=== PATIENT | female | born 1945 | race Caucasian/White ===

== ENCOUNTER 2016-09-21 13:23 | Emergency (ER) | payer BC, MEDICARE ==
[~2016-09-21 13:23] MED LIST: ALPR0.254 PO; ASPI-496 PO; CARB200T4 PO; CETI-158 PO; CETI10CA PO; CYCL-259 PO; FISH1CAP PO; FLUT16SP NS; GUAR205P PO; LEVO750T26 PO; LISI-167 PO; LOVA20TA2 PO; MORP10CA7 PO; MORP15TA39 PO; MORP30TA14 PO; MULT-208 PO; NYST15CR33 TP; POLY17PO5 PO; PROP160C PO; SERT100T5 PO; TOPI100C PO; TRAZ100T15 PO; TRAZ50TA18 PO; VITA150T PO; [UNRECOGNIZED DRUG - OTHER] PO
[2016-09-21 14:43] LABS: BLOOD UREA NITROGEN 11 mg/dL (7-18)
[2016-09-21] MEDS ORDERED: OXYcodone/APAP 5/325MG TABLET ONE (15:24)
[2016-09-21] MEDS ORDERED: OXYcodone/APAP 5/325MG TABLET PO ONE (15:30)
[2016-09-21 15:50] VITALS: BP 108/47
[2016-09-21] MEDS ORDERED: PLEASE ENTER HEIGHT MC SCH (16:00)
== END 2016-09-21 16:49 | disposition home or self-care (01) ==
LOC: ED 15:13
DX: S00.83XA Contusion of other part of head, initial encounter (principal); S00.33XA Contusion of nose, initial encounter; J01.00 Acute maxillary sinusitis, unspecified; J01.20 Acute ethmoidal sinusitis, unspecified; J01.10 Acute frontal sinusitis, unspecified; J01.30 Acute sphenoidal sinusitis, unspecified; I10 Essential (primary) hypertension; Z86.73 Personal history of transient ischemic attack (TIA), and cerebral infarction without residual deficits; Z90.49 Acquired absence of other specified parts of digestive tract; W18.30XA Fall on same level, unspecified, initial encounter; Y93.89 Activity, other specified; Y92.89 Other specified places as the place of occurrence of the external cause; Y99.9 Unspecified external cause status
CPT/HCPCS: 36415; 70450; 70486; 72125; 80048; 81003; 82040; 85025; 99285

== ENCOUNTER → 2017-07-31 | Outpatient (CLI) | payer BC ==
[~2017-07-31] MED LIST changes: +MORP-52 PO; -MORP15TA39 PO
== END | disposition home or self-care (01) ==
LOC: CFH 07:58
PROVIDERS: ATTEND Nurse Practitioner
DX: I08.0 Rheumatic disorders of both mitral and aortic valves (principal); J44.9 Chronic obstructive pulmonary disease, unspecified; E78.5 Hyperlipidemia, unspecified; I10 Essential (primary) hypertension; Z86.73 Personal history of transient ischemic attack (TIA), and cerebral infarction without residual deficits
CPT/HCPCS: 93306

== ENCOUNTER 2017-09-08 19:38 | Emergency (ER) | payer BC ==
[~2017-09-08] VITALS: Ht 157.5 cm; Wt 112.0 kg
[2017-09-08] MEDS ORDERED: HYDROcodone/APAP 5/325 TABLET ONE (20:14)
[2017-09-08] MEDS ORDERED: [UNRECOGNIZED DRUG - OTHER] (20:24)
[2017-09-08] MEDS ORDERED: CHOL10003 PO (20:24)
[2017-09-08] MEDS ORDERED: OMEG1CAP23 PO (20:24)
[2017-09-08] MEDS ORDERED: TRAZ100T15 PO (20:24)
[2017-09-08] MEDS ORDERED: HYDROcodone/APAP 5/325 TABLET PO ONE (20:30)
[2017-09-08 21:17] VITALS: BP 128/56
== END 2017-09-08 21:19 | disposition home or self-care (01) ==
LOC: ED 20:45
DX: S20.211A Contusion of right front wall of thorax, initial encounter (principal); W01.0XXA Fall on same level from slipping, tripping and stumbling without subsequent striking against object, initial encounter; Y93.89 Activity, other specified; Y92.009 Unspecified place in unspecified non-institutional (private) residence as the place of occurrence of the external cause; Y99.9 Unspecified external cause status; I10 Essential (primary) hypertension; Z86.73 Personal history of transient ischemic attack (TIA), and cerebral infarction without residual deficits; Z87.891 Personal history of nicotine dependence
CPT/HCPCS: 93005; 99284

== ENCOUNTER → 2017-12-20 | Outpatient (CLI) | payer BC ==
[~2017-12-20] MED LIST changes: +CHOL10003 PO; +OMEG1CAP23 PO; -TOPI100C PO; +TOPI100C6 PO; +[UNRECOGNIZED DRUG - OTHER]
== END | disposition home or self-care (01) ==
LOC: CFH 14:18
PROVIDERS: ATTEND Registered Nurse
DX: Z12.2 Encounter for screening for malignant neoplasm of respiratory organs (principal); I25.10 Atherosclerotic heart disease of native coronary artery without angina pectoris; Z87.891 Personal history of nicotine dependence
CPT/HCPCS: G0297

== ENCOUNTER 2018-04-10 10:45 | Inpatient (IN) | payer MEDICARE, BC ==
[~2018-04-10] VITALS: Ht 152.4 cm; Wt 116.0 kg
[~2018-04-10 10:45] MED LIST changes: +TRAZ-136 PO; +TRAZ-137 PO; -TRAZ100T15 PO; -TRAZ50TA18 PO
[2018-04-10] MEDS ORDERED: DIVA-61 PO (12:03)
[2018-04-10 12:27] LABS: BASOPHILS # (AUTO) 0.01 x10^3/uL (0-0.1); BASOPHILS % (AUTO) 0 % (0-1); EOSINOPHILS # (AUTO) 0.24 x10^3/uL (0-0.4); EOSINOPHILS % (AUTO) 5 % (1-7); LYMPHOCYTES % (AUTO) 24 % (22-44); MD NO; MEAN CORPUSCULAR HEMOGLOBIN 35.6 pg (27.0-34.8); MEAN CORPUSCULAR HGB CONC 34.8 g/dL (32.4-35.8); MEAN CORPUSCULAR VOLUME 102.4 fL (80-100); MEAN PLATELET VOLUME 6.9 fL (7.4-10.4); MONOCYTES # (AUTO) 0.53 x10^3/uL (0.2-0.8); MONOCYTES % (AUTO) 10 % (2-9); NEUTROPHILS # (AUTO) 3.08 x10^3/uL (1.8-6.8); NEUTROPHILS % (AUTO) 61 % (42-75); PLATELET COUNT 176 x10^3/uL (130-400); RED BLOOD COUNT 4.03 x10^6/uL (3.82-5.3); RED CELL DISTRIBUTION WIDTH 13.1 % (9.6-15.2)
[2018-04-10 12:38] LABS: ALANINE AMINOTRANSFERASE 32 U/L (12-78); ALBUMIN 2.7 g/dL (3.4-5.0); ANION GAP 7 mmol/L (5-15); CALCIUM 8.1 mg/dL (8.5-10.1); CHLORIDE 98 mmol/L (98-107)
[2018-04-10 12:40] LABS: ALKALINE PHOSPHATASE 189 U/L (45-117); BILIRUBIN,TOTAL 0.6 mg/dL (0.2-1.0); TOTAL PROTEIN 7.4 g/dL (6.4-8.2)
[2018-04-10] MEDS ORDERED: CARB200T4 PO ×2 (13:27)
[2018-04-10] MEDS ORDERED: UMEC1DIS INH (13:32)
[2018-04-10] MEDS ORDERED: FLUT1DIS3 INH (13:32)
[2018-04-10] MEDS ORDERED: CYCL-259 PO (13:32)
[2018-04-10] MEDS ORDERED: MIDRIN PO (13:32)
[2018-04-10] MEDS ORDERED: CETI-158 PO (13:33)
[2018-04-10] MEDS ORDERED: DEXAMETHASONE (13:34)
[2018-04-10] MEDS ORDERED: BENEFIBER (13:34)
[2018-04-10 14:12] LABS: MICROSCOPIC AUTO
[2018-04-10 14:13] LABS: CULTURE INDICATED? YES
[2018-04-10 17:32] VITALS: BP 134/80
[2018-04-10] MEDS: SODIUM CHLORIDE 0.9% 1,000 ML IV SCH (18:00)
[2018-04-10] MEDS ORDERED: CEFTRIAXONE 2 GM in SODIUM CHLORIDE 0.9% 50 ML IV SCH (18:00)
[2018-04-10] MEDS ORDERED: DIPHENHYDRAMINE 50 MG/ML, 1ML IVPush ONE (18:30)
[2018-04-10 19:21] LABS: FOLATE LEVEL > 20.0 ng/mL (3.1-17.5)
[2018-04-10] MEDS ORDERED: hydrALAzine 20 MG/ML, 1ML IVPush PRN (20:00)
[2018-04-10] MEDS ORDERED: POLYETHYLENE GLYCOL 17 GM PACKET PO PRN (20:00)
[2018-04-10] MEDS ORDERED: ONDANSETRON 2MG/ML, 2ML IVPush PRN (20:00)
[2018-04-10] MEDS ORDERED: ONDANSETRON ODT 4 MG PO PRN (20:00)
[2018-04-10] MEDS ORDERED: morphine SULFATE 10 MG/ML, 1ML IVPush PRN (20:00)
[2018-04-10] MEDS ORDERED: PROMETHAZINE 25 MG/ML, 1ML IM PRN (20:00)
[2018-04-10] MEDS ORDERED: BISACODYL 10 MG SUPP PR PRN (20:00)
[2018-04-10] MEDS ORDERED: LABETALOL 5MG/ML, 20ML IVPush PRN (20:00)
[2018-04-10] MEDS ORDERED: DOCUSATE 100 MG CAPSULE PO PRN (20:00)
[2018-04-10 20:20] LABS: FREE T4 (FREE THYROXINE) 0.78 ng/dL (0.76-1.46)
[2018-04-10] MEDS ORDERED: CARBAMAZEPINE 200 MG TABLET PO SCH (20:30)
[2018-04-10 20:34] LABS: HEMOGLOBIN A1C 5.3 % (4.2-6.3)
[2018-04-10 20:44] VITALS: BP 120/81
[2018-04-10] MEDS: TRAZODONE 100MG TABLET PO SCH (21:00)
[2018-04-10] MEDS ORDERED: ALBUTEROL/IPRATROPIUM 2.5MG/0.5MG, 3 ML ONE (21:08)
[2018-04-10] MEDS: LACTULOSE 10 GM/15 ML UDC PO SCH (21:53)
[2018-04-10] MEDS: CARBAMAZEPINE 200 MG TABLET PO SCH (21:53)
[2018-04-10] MEDS: FLUTICASONE/VILANTEROL 200-25MCG/INH INH SCH (21:53)
[2018-04-10] MEDS: DIVALPROEX 500 MG TABLET.DR PO SCH (21:54)
[2018-04-10] MEDS: LOVASTATIN 20 MG TABLET PO SCH (21:54)
[2018-04-10] MEDS: HEPARIN 5,000 UNITS/ML, 1ML SQ SCH (21:54)
[2018-04-11 01:04] VITALS: BP 114/83
[2018-04-11] MEDS: SODIUM CHLORIDE 0.9% 1,000 ML IV SCH ×3 (02:10→15:01)
[2018-04-11 05:28] LABS: BASOPHILS # (AUTO) 0.02 x10^3/uL (0-0.1); BASOPHILS % (AUTO) 0 % (0-1); EOSINOPHILS # (AUTO) 0.32 x10^3/uL (0-0.4); EOSINOPHILS % (AUTO) 5 % (1-7); LYMPHOCYTES # (AUTO) 1.54 x10^3/uL (1-3.4); LYMPHOCYTES % (AUTO) 23 % (22-44); MD NO; MEAN CORPUSCULAR HEMOGLOBIN 34.8 pg (27.0-34.8); MEAN CORPUSCULAR HGB CONC 34.1 g/dL (32.4-35.8); MEAN CORPUSCULAR VOLUME 102.1 fL (80-100); MEAN PLATELET VOLUME 7.2 fL (7.4-10.4); MONOCYTES # (AUTO) 0.58 x10^3/uL (0.2-0.8); MONOCYTES % (AUTO) 9 % (2-9); NEUTROPHILS % (AUTO) 63 % (42-75); PLATELET COUNT 162 x10^3/uL (130-400); RED CELL DISTRIBUTION WIDTH 12.9 % (9.6-15.2)
[2018-04-11 05:30] LABS: ALBUMIN 2.5 g/dL (3.4-5.0); ANION GAP 7 mmol/L (5-15); CHLORIDE 101 mmol/L (98-107)
[2018-04-11 05:34] LABS: ALANINE AMINOTRANSFERASE 28 U/L (12-78); ALKALINE PHOSPHATASE 174 U/L (45-117); BILIRUBIN,TOTAL 0.5 mg/dL (0.2-1.0); CHOLESTEROL, TOTAL 120 mg/dL (140-239); CREATININE 0.39 mg/dL (0.55-1.02); HDL CHOL % 49 % (28-40); HDL CHOLESTEROL (DIRECT) 59 mg/dL (40-60); LDL CHOLESTEROL,CALCULATED 48 mg/dL (54-169); LDL/HDL RATIO 0.8 (0.5-3.0); TOTAL PROTEIN 6.8 g/dL (6.4-8.2); TRIGLYCERIDES 65 mg/dL (50-200); VLDL CHOLESTEROL 13 mg/dL (0-25)
[2018-04-11] MEDS: ASPIRIN 325 MG TABLET EC PO SCH (05:54)
[2018-04-11] MEDS: HEPARIN 5,000 UNITS/ML, 1ML SQ SCH ×3 (05:55→21:56)
[2018-04-11 06:05] VITALS: BP 134/80
[2018-04-11] MEDS: ALBUTEROL/IPRATROPIUM 2.5MG/0.5MG, 3 ML NPPB SCH ×2 (07:25→19:44)
[2018-04-11 07:57] VITALS: BP 118/79
[2018-04-11] MEDS: PROPRANOLOl 80 MG CAP.SA.24H PO SCH (08:51)
[2018-04-11] MEDS: LACTULOSE 10 GM/15 ML UDC PO SCH ×2 (08:51→21:54)
[2018-04-11] MEDS: TOPIRAMATE 100 MG TABLET PO SCH (08:51)
[2018-04-11] MEDS: DIVALPROEX 500 MG TABLET.DR PO SCH ×2 (08:52→21:55)
[2018-04-11] MEDS: OMEGA-3/FISH OIL CAPSULE PO SCH (08:52)
[2018-04-11] MEDS: CHOLECALCIFEROL 1,000 UNIT TABLET PO SCH (08:53)
[2018-04-11] MEDS: CARBAMAZEPINE 200 MG TABLET PO SCH ×2 (08:53→21:55)
[2018-04-11] MEDS: SERTRALINE 100MG TABLET PO SCH (08:53)
[2018-04-11] MEDS: CETIRIZINE 10 MG TABLET PO SCH (08:53)
[2018-04-11] MEDS: FLUTICASONE NASAL SPRAY 16GM NAS SCH (09:59)
[2018-04-11 14:05] VITALS: BP 120/76
[2018-04-11] MEDS: CEFTRIAXONE PMX 2GM/50ML 50 ML IV SCH (17:56)
[2018-04-11 20:11] VITALS: BP 135/79
[2018-04-11] MEDS: TRAZODONE 100MG TABLET PO SCH (21:00)
[2018-04-11] MEDS: FLUTICASONE/VILANTEROL 200-25MCG/INH INH SCH (21:53)
[2018-04-11] MEDS: LOVASTATIN 20 MG TABLET PO SCH (21:55)
[2018-04-12] MEDS: SODIUM CHLORIDE 0.9% 1,000 ML IV SCH ×3 (00:28→21:25)
[2018-04-12 03:00] VITALS: BP 131/72
[2018-04-12] MEDS: ASPIRIN 325 MG TABLET EC PO SCH (05:15)
[2018-04-12] MEDS: HEPARIN 5,000 UNITS/ML, 1ML SQ SCH ×3 (05:15→21:27)
[2018-04-12 08:16] VITALS: BP 141/79
[2018-04-12] MEDS: FLUTICASONE NASAL SPRAY 16GM NAS SCH (09:00)
[2018-04-12] MEDS: PROPRANOLOl 80 MG CAP.SA.24H PO SCH (09:00)
[2018-04-12] MEDS: CHOLECALCIFEROL 1,000 UNIT TABLET PO SCH (09:49)
[2018-04-12] MEDS: CARBAMAZEPINE 200 MG TABLET PO SCH ×2 (09:50→21:00)
[2018-04-12] MEDS: CETIRIZINE 10 MG TABLET PO SCH (09:50)
[2018-04-12] MEDS: OMEGA-3/FISH OIL CAPSULE PO SCH (09:50)
[2018-04-12] MEDS: DIVALPROEX 500 MG TABLET.DR PO SCH (09:50)
[2018-04-12] MEDS: SERTRALINE 100MG TABLET PO SCH (09:50)
[2018-04-12] MEDS: TOPIRAMATE 100 MG TABLET PO SCH (09:50)
[2018-04-12] MEDS: LACTULOSE 10 GM/15 ML UDC PO SCH ×2 (09:59→21:00)
[2018-04-12 13:18] VITALS: BP 138/62
[2018-04-12] MEDS: ALBUTEROL/IPRATROPIUM 2.5MG/0.5MG, 3 ML NPPB SCH ×2 (13:58→19:26)
[2018-04-12] MEDS: CEFTRIAXONE PMX 2GM/50ML 50 ML IV SCH (17:27)
[2018-04-12 20:08] VITALS: BP 144/81
[2018-04-12] MEDS: TRAZODONE 100MG TABLET PO SCH (20:40)
[2018-04-12] MEDS: LOVASTATIN 20 MG TABLET PO SCH (21:00)
[2018-04-12] MEDS: FLUTICASONE/VILANTEROL 200-25MCG/INH INH SCH (21:00)
[2018-04-12] MEDS ORDERED: LACTULOSE 3.3 GM/5 ML ORAL.SOL RC ONE (23:00)
[2018-04-13 01:26] VITALS: BP 164/72
[2018-04-13] MEDS: SODIUM CHLORIDE 0.9% 1,000 ML IV SCH ×3 (04:02→21:46)
[2018-04-13] MEDS: HEPARIN 5,000 UNITS/ML, 1ML SQ SCH ×3 (06:33→21:36)
[2018-04-13 07:28] VITALS: BP 176/89
[2018-04-13] MEDS: PROPRANOLOl 80 MG CAP.SA.24H PO SCH (09:00)
[2018-04-13] MEDS: CARBAMAZEPINE 200 MG TABLET PO SCH ×2 (09:08→21:35)
[2018-04-13] MEDS: OMEGA-3/FISH OIL CAPSULE PO SCH (09:12)
[2018-04-13] MEDS: CETIRIZINE 10 MG TABLET PO SCH (09:12)
[2018-04-13] MEDS: SERTRALINE 100MG TABLET PO SCH (09:12)
[2018-04-13] MEDS: CHOLECALCIFEROL 1,000 UNIT TABLET PO SCH (09:12)
[2018-04-13] MEDS: TOPIRAMATE 100 MG TABLET PO SCH (09:12)
[2018-04-13] MEDS: LACTULOSE 10 GM/15 ML UDC PO SCH ×2 (09:14→21:00)
[2018-04-13] MEDS: FLUTICASONE NASAL SPRAY 16GM NAS SCH (09:16)
[2018-04-13] MEDS: ASPIRIN 325 MG TABLET EC PO SCH (09:18)
[2018-04-13] MEDS: ALBUTEROL/IPRATROPIUM 2.5MG/0.5MG, 3 ML NPPB SCH ×2 (12:00→20:19)
[2018-04-13 14:55] VITALS: BP 121/68
[2018-04-13] MEDS: CEFTRIAXONE PMX 2GM/50ML 50 ML IV SCH (18:05)
[2018-04-13 20:35] VITALS: BP 116/72
[2018-04-13] MEDS: LOVASTATIN 20 MG TABLET PO SCH (21:36)
[2018-04-13] MEDS: TRAZODONE 100MG TABLET PO SCH (21:36)
[2018-04-13] MEDS: FLUTICASONE/VILANTEROL 200-25MCG/INH INH SCH (21:45)
[2018-04-14 02:32] VITALS: BP 122/76
[2018-04-14] MEDS: ASPIRIN 325 MG TABLET EC PO SCH (05:23)
[2018-04-14] MEDS: SODIUM CHLORIDE 0.9% 1,000 ML IV SCH ×3 (05:24→23:20)
[2018-04-14] MEDS: HEPARIN 5,000 UNITS/ML, 1ML SQ SCH ×3 (05:24→22:12)
[2018-04-14 07:05] VITALS: BP 131/83
[2018-04-14] MEDS: ALBUTEROL/IPRATROPIUM 2.5MG/0.5MG, 3 ML NPPB SCH ×2 (07:12→20:45)
[2018-04-14] MEDS ORDERED: LACTULOSE 10 GM/15 ML UDC PO PRN (07:30)
[2018-04-14] MEDS: OMEGA-3/FISH OIL CAPSULE PO SCH (09:08)
[2018-04-14] MEDS: CARBAMAZEPINE 200 MG TABLET PO SCH ×2 (09:08→22:12)
[2018-04-14] MEDS: CETIRIZINE 10 MG TABLET PO SCH (09:08)
[2018-04-14] MEDS: TOPIRAMATE 100 MG TABLET PO SCH (09:08)
[2018-04-14] MEDS: CHOLECALCIFEROL 1,000 UNIT TABLET PO SCH (09:08)
[2018-04-14] MEDS: SERTRALINE 100MG TABLET PO SCH (09:08)
[2018-04-14] MEDS: FLUTICASONE NASAL SPRAY 16GM NAS SCH (09:09)
[2018-04-14] MEDS: PROPRANOLOl 80 MG CAP.SA.24H PO SCH (09:09)
[2018-04-14] MEDS: LACTULOSE 10 GM/15 ML UDC PO SCH ×2 (09:09→22:16)
[2018-04-14 14:00] VITALS: BP 125/81
[2018-04-14] MEDS: CEFTRIAXONE PMX 2GM/50ML 50 ML IV SCH (17:05)
[2018-04-14 20:12] VITALS: BP 124/78
[2018-04-14] MEDS: FLUTICASONE/VILANTEROL 200-25MCG/INH INH SCH (22:12)
[2018-04-14] MEDS: TRAZODONE 100MG TABLET PO SCH (22:13)
[2018-04-14] MEDS: LOVASTATIN 20 MG TABLET PO SCH (22:13)
[2018-04-15 02:05] VITALS: BP 124/76
[2018-04-15] MEDS: HEPARIN 5,000 UNITS/ML, 1ML SQ SCH ×2 (05:42→13:34)
[2018-04-15] MEDS: ASPIRIN 325 MG TABLET EC PO SCH (05:42)
[2018-04-15 06:15] LABS: ALBUMIN 2.2 g/dL (3.4-5.0); ANION GAP 6 mmol/L (5-15); CALCIUM 7.5 mg/dL (8.5-10.1); CHLORIDE 106 mmol/L (98-107)
[2018-04-15 06:20] LABS: ALANINE AMINOTRANSFERASE 27 U/L (12-78); ALKALINE PHOSPHATASE 149 U/L (45-117); BILIRUBIN,TOTAL 0.4 mg/dL (0.2-1.0); CREATININE 0.28 mg/dL (0.55-1.02); TOTAL PROTEIN 6.1 g/dL (6.4-8.2)
[2018-04-15] MEDS: SODIUM CHLORIDE 0.9% 1,000 ML IV SCH (06:28)
[2018-04-15 07:28] VITALS: BP 120/75
[2018-04-15] MEDS: ALBUTEROL/IPRATROPIUM 2.5MG/0.5MG, 3 ML NPPB SCH (09:00)
[2018-04-15] MEDS: PROPRANOLOl 80 MG CAP.SA.24H PO SCH (09:00)
[2018-04-15] MEDS: LACTULOSE 10 GM/15 ML UDC PO SCH (09:54)
[2018-04-15] MEDS: CETIRIZINE 10 MG TABLET PO SCH (09:55)
[2018-04-15] MEDS: TOPIRAMATE 100 MG TABLET PO SCH (09:55)
[2018-04-15] MEDS: CHOLECALCIFEROL 1,000 UNIT TABLET PO SCH (09:55)
[2018-04-15] MEDS: OMEGA-3/FISH OIL CAPSULE PO SCH (09:55)
[2018-04-15] MEDS: CARBAMAZEPINE 200 MG TABLET PO SCH (09:55)
[2018-04-15] MEDS: SERTRALINE 100MG TABLET PO SCH (09:55)
[2018-04-15] MEDS: FLUTICASONE NASAL SPRAY 16GM NAS SCH (10:09)
[2018-04-15] MEDS ORDERED: IPRA3AMP30 NPPB (12:24)
[2018-04-15] MEDS ORDERED: FLUT1DIS3 INH (12:24)
[2018-04-15 12:35] VITALS: BP 123/79
== END 2018-04-15 16:27 | DRG 91 ==
LOC: ED 13:00 → EDIP 14:25 → 4WST 16:20
PROVIDERS: ADMIT Hospitalist; ATTEND Hospitalist
PROC: 0T9B70Z Drainage of Bladder with Drainage Device, Via Natural or Artificial Opening (ICD-10-PCS; principal; 2018-04-10)
DX: G92 Toxic encephalopathy (principal); E43 Unspecified severe protein-calorie malnutrition; E72.20 Disorder of urea cycle metabolism, unspecified; I69.351 Hemiplegia and hemiparesis following cerebral infarction affecting right dominant side; Z68.42 Body mass index [BMI] 45.0-49.9, adult; E87.1 Hypo-osmolality and hyponatremia; J96.10 Chronic respiratory failure, unspecified whether with hypoxia or hypercapnia; Z88.0 Allergy status to penicillin; Z88.2 Allergy status to sulfonamides; Z88.8 Allergy status to other drugs, medicaments and biological substances; E66.01 Morbid (severe) obesity due to excess calories; E78.5 Hyperlipidemia, unspecified; F32.9 Major depressive disorder, single episode, unspecified; G40.909 Epilepsy, unspecified, not intractable, without status epilepticus; G43.909 Migraine, unspecified, not intractable, without status migrainosus; G47.33 Obstructive sleep apnea (adult) (pediatric); G89.29 Other chronic pain; I10 Essential (primary) hypertension; J32.9 Chronic sinusitis, unspecified; J44.9 Chronic obstructive pulmonary disease, unspecified; Z99.81 Dependence on supplemental oxygen; Z87.891 Personal history of nicotine dependence; Z96.611 Presence of right artificial shoulder joint; Z96.612 Presence of left artificial shoulder joint; Z87.440 Personal history of urinary (tract) infections
CPT/HCPCS: 36415; 70450; 70544; 70551; 71045; 76700; 80053; 80061; 80156; 80164; 81001; 82140; 82607; 82746; 82962; 83036; 83735; 84439; 84443; 85025; 87040; 87086; 93005; 94640; 99285; G0378; J0696; J1644; J7620; 92523-GN; J1200; J2270; J7030

== ENCOUNTER 2018-04-20 15:26 | Emergency (ER) | payer BC, MEDICARE ==
[~2018-04-20] VITALS: Ht 152.4 cm; Wt 110.0 kg
[~2018-04-20 15:26] MED LIST changes: +BENEFIBER; +DEXAMETHASONE; +DIVA-61 PO; +FLUT1DIS3 INH; +IPRA3AMP30 NPPB; +MIDRIN PO; +UMEC1DIS INH
[2018-04-20 15:33] VITALS: BP 120/64
== END 2018-04-20 18:37 | disposition home or self-care (01) ==
LOC: ED 18:31
DX: S00.83XA Contusion of other part of head, initial encounter (principal); S00.33XA Contusion of nose, initial encounter; S50.812A Abrasion of left forearm, initial encounter; E78.5 Hyperlipidemia, unspecified; F32.9 Major depressive disorder, single episode, unspecified; I63.9 Cerebral infarction, unspecified; I10 Essential (primary) hypertension; E11.9 Type 2 diabetes mellitus without complications; E66.01 Morbid (severe) obesity due to excess calories; Z68.42 Body mass index [BMI] 45.0-49.9, adult; W19.XXXA Unspecified fall, initial encounter; Y93.89 Activity, other specified; Y92.89 Other specified places as the place of occurrence of the external cause; Y99.8 Other external cause status
CPT/HCPCS: 70450; 72125; 99284

== ENCOUNTER 2018-05-22 12:22 | Inpatient (IN) | payer MEDICARE, BC ==
[~2018-05-22] VITALS: Ht 154.9 cm; Wt 103.6 kg
[~2018-05-22 12:22] MED LIST changes: -TRAZ-136 PO; +TRAZ50TA66 PO
[2018-05-22] MEDS ORDERED: THIAMINE 100MG TABLET PO ONE (13:00)
[2018-05-22] MEDS ORDERED: SODIUM CHLORIDE FLUSH 10ML SYR IVF ONE (13:00)
[2018-05-22 13:35] LABS: BASOPHILS # (AUTO) 0.02 x10^3/uL (0-0.1); BASOPHILS % (AUTO) 0 % (0-1); EOSINOPHILS # (AUTO) 0.34 x10^3/uL (0-0.4); EOSINOPHILS % (AUTO) 5 % (1-7); LYMPHOCYTES # (AUTO) 1.15 x10^3/uL (1-3.4); LYMPHOCYTES % (AUTO) 15 % (22-44); MD NO; MEAN CORPUSCULAR HEMOGLOBIN 35.2 pg (27.0-34.8); MEAN CORPUSCULAR HGB CONC 34.6 g/dL (32.4-35.8); MEAN PLATELET VOLUME 7.2 fL (7.4-10.4); MONOCYTES # (AUTO) 0.59 x10^3/uL (0.2-0.8); MONOCYTES % (AUTO) 8 % (2-9); NEUTROPHILS # (AUTO) 5.46 x10^3/uL (1.8-6.8); NEUTROPHILS % (AUTO) 72 % (42-75); PLATELET COUNT 150 x10^3/uL (130-400); RED BLOOD COUNT 3.64 x10^6/uL (3.82-5.3); RED CELL DISTRIBUTION WIDTH 13.4 % (9.6-15.2)
[2018-05-22 13:48] LABS: ALANINE AMINOTRANSFERASE 30 U/L (12-78); ALBUMIN 2.5 g/dL (3.4-5.0); ANION GAP 9 mmol/L (5-15); CHLORIDE 107 mmol/L (98-107); CREATININE 0.48 mg/dL (0.55-1.02)
[2018-05-22 13:53] LABS: ACETAMINOPHEN < 2 mcg/mL (10-30); ALKALINE PHOSPHATASE 170 U/L (45-117); BILIRUBIN,TOTAL 0.7 mg/dL (0.2-1.0); SALICYLATE LEVEL < 1.7 mg/dL (2.8-20.0); TOTAL PROTEIN 7.1 g/dL (6.4-8.2); TROPONIN I < 0.015 ng/mL (0.000-0.045)
[2018-05-22 14:00] LABS: INTERNATIONAL NORMALIZED RATIO 1.15 (0.93-1.1); PROTHROMBIN TIME 12.1 Seconds (9.6-11.5)
[2018-05-22] MEDS ORDERED: LACTULOSE 20 GM/30 ML UDC PO ONE (14:53)
[2018-05-22] MEDS ORDERED: SODIUM CHLORIDE FLUSH 10ML SYR IVF PRN (15:00)
[2018-05-22 15:22] LABS: MICROSCOPIC INDICATED
[2018-05-22] MEDS ORDERED: THIAMINE 100MG TABLET ONE (15:23)
[2018-05-22 15:38] LABS: CULTURE INDICATED? YES
[2018-05-22] MEDS ORDERED: MULTIVITAMIN (15:40)
[2018-05-22] MEDS ORDERED: UMEC1DIS INH (15:58)
[2018-05-22] MEDS ORDERED: SUPER B COMPLEX PO (15:59)
[2018-05-22] MEDS ORDERED: hydrALAzine 20 MG/ML, 1ML IVPush PRN (16:00)
[2018-05-22] MEDS ORDERED: ONDANSETRON 2MG/ML, 2ML IVPush PRN (16:00)
[2018-05-22] MEDS: LACTULOSE 20 GM/30 ML UDC PO SCH ×2 (16:00→21:31)
[2018-05-22] MEDS ORDERED: TRAZ-137 PO (16:00)
[2018-05-22] MEDS ORDERED: BENEFIBER PO (16:03)
[2018-05-22] MEDS ORDERED: MIDRIN (16:03)
[2018-05-22] MEDS ORDERED: CYCL-259 PO (16:05)
[2018-05-22] MEDS ORDERED: DESOXIMETASONE TP (16:05)
[2018-05-22] MEDS ORDERED: [UNRECOGNIZED DRUG - OTHER] (16:05)
[2018-05-22 16:51] VITALS: BP 113/78
[2018-05-22 20:00] VITALS: BP 148/91
[2018-05-22] MEDS ORDERED: CARBAMAZEPINE 200 MG TABLET PO SCH (21:00)
[2018-05-22] MEDS: CARBAMAZEPINE 200 MG TABLET PO SCH (21:31)
[2018-05-22] MEDS: D5%-0.45NACL+KCL 20MEQ 1,000 ML IV SCH (21:31)
[2018-05-22] MEDS: LOVASTATIN 20 MG TABLET PO SCH (21:31)
[2018-05-22] MEDS: ENOXAPARIN 40 MG/0.4 ML SQ SCH (21:31)
[2018-05-22] MEDS: TEMPLATE NON-FORMULARY MED. (Fluticasone/Salmeterol** (Advair 250-50 Diskus**) 1 PUFF) INH SCH (21:32)
[2018-05-23 01:36] VITALS: BP 157/95
[2018-05-23] MEDS: D5%-0.45NACL+KCL 20MEQ 1,000 ML IV SCH ×3 (02:20→20:37)
[2018-05-23 05:51] LABS: BASOPHILS # (AUTO) 0.01 x10^3/uL (0-0.1); BASOPHILS % (AUTO) 0 % (0-1); EOSINOPHILS # (AUTO) 0.26 x10^3/uL (0-0.4); EOSINOPHILS % (AUTO) 5 % (1-7); LYMPHOCYTES # (AUTO) 1.15 x10^3/uL (1-3.4); LYMPHOCYTES % (AUTO) 22 % (22-44); MD NO; MEAN CORPUSCULAR HGB CONC 33.5 g/dL (32.4-35.8); MEAN CORPUSCULAR VOLUME 101.7 fL (80-100); MEAN PLATELET VOLUME 7.5 fL (7.4-10.4); MONOCYTES # (AUTO) 0.66 x10^3/uL (0.2-0.8); MONOCYTES % (AUTO) 13 % (2-9); NEUTROPHILS # (AUTO) 3.18 x10^3/uL (1.8-6.8); NEUTROPHILS % (AUTO) 60 % (42-75); PLATELET COUNT 159 x10^3/uL (130-400); RED BLOOD COUNT 3.69 x10^6/uL (3.82-5.3); RED CELL DISTRIBUTION WIDTH 13.5 % (9.6-15.2)
[2018-05-23 06:00] LABS: ALANINE AMINOTRANSFERASE 30 U/L (12-78); ALBUMIN 2.6 g/dL (3.4-5.0); ANION GAP 5 mmol/L (5-15); CALCIUM 8.6 mg/dL (8.5-10.1); CHLORIDE 108 mmol/L (98-107); CREATININE 0.42 mg/dL (0.55-1.02)
[2018-05-23 06:02] LABS: ALKALINE PHOSPHATASE 158 U/L (45-117); BILIRUBIN,TOTAL 0.8 mg/dL (0.2-1.0)
[2018-05-23] MEDS: ASPIRIN 81 MG TABLET EC PO SCH (06:15)
[2018-05-23 07:50] VITALS: BP 129/72
[2018-05-23] MEDS: TEMPLATE NON-FORMULARY MED. (Fluticasone/Salmeterol** (Advair 250-50 Diskus**) 1 PUFF) INH SCH ×2 (08:17→21:00)
[2018-05-23] MEDS: PROPRANOLOl 80 MG CAP.SA.24H PO SCH (08:25)
[2018-05-23] MEDS: LACTULOSE 20 GM/30 ML UDC PO SCH ×3 (08:25→22:00)
[2018-05-23] MEDS: SERTRALINE 100MG TABLET PO SCH (08:25)
[2018-05-23] MEDS: CHOLECALCIFEROL 1,000 UNIT TABLET PO SCH (08:25)
[2018-05-23] MEDS: CARBAMAZEPINE 200 MG TABLET PO SCH ×2 (08:25→22:00)
[2018-05-23] MEDS: FLUTICASONE NASAL SPRAY 16GM NAS SCH (08:38)
[2018-05-23 12:57] VITALS: BP 119/78
[2018-05-23 19:32] VITALS: BP 146/74
[2018-05-23] MEDS: LOVASTATIN 20 MG TABLET PO SCH (22:00)
[2018-05-23] MEDS: ENOXAPARIN 40 MG/0.4 ML SQ SCH (22:00)
[2018-05-24 02:00] VITALS: BP 146/66
[2018-05-24] MEDS: ASPIRIN 81 MG TABLET EC PO SCH (05:56)
[2018-05-24 07:45] VITALS: BP 152/80
[2018-05-24] MEDS: D5%-0.45NACL+KCL 20MEQ 1,000 ML IV SCH (08:00)
[2018-05-24] MEDS: TEMPLATE NON-FORMULARY MED. (Fluticasone/Salmeterol** (Advair 250-50 Diskus**) 1 PUFF) INH SCH ×2 (09:00→21:24)
[2018-05-24] MEDS: CARBAMAZEPINE 200 MG TABLET PO SCH ×2 (09:32→21:24)
[2018-05-24] MEDS: CHOLECALCIFEROL 1,000 UNIT TABLET PO SCH (09:32)
[2018-05-24] MEDS: PROPRANOLOl 80 MG CAP.SA.24H PO SCH (09:32)
[2018-05-24] MEDS: LACTULOSE 20 GM/30 ML UDC PO SCH ×3 (09:32→21:24)
[2018-05-24] MEDS: FLUTICASONE NASAL SPRAY 16GM NAS SCH (09:32)
[2018-05-24] MEDS: SERTRALINE 100MG TABLET PO SCH (09:32)
[2018-05-24 13:30] VITALS: BP 172/89
[2018-05-24 16:21] VITALS: BP 170/78
[2018-05-24 17:00] VITALS: BP 155/78
[2018-05-24] MEDS: OXYcodone IR 5MG TABLET PO PRN ×3 (17:52→22:15)
[2018-05-24 19:53] VITALS: BP 146/79
[2018-05-24] MEDS: ACETAMINOPHEN 325 MG TABLET PO PRN (21:24)
[2018-05-24] MEDS: LOVASTATIN 20 MG TABLET PO SCH (21:24)
[2018-05-24] MEDS: NYSTATIN TOPICAL POWDER 15GM TP SCH (21:24)
[2018-05-24] MEDS: ENOXAPARIN 40 MG/0.4 ML SQ SCH (21:24)
[2018-05-25 01:44] VITALS: BP 143/77
[2018-05-25] MEDS: OXYcodone IR 5MG TABLET PO PRN ×3 (02:41→22:43)
[2018-05-25 05:20] LABS: BASOPHILS # (AUTO) 0.01 x10^3/uL (0-0.1); BASOPHILS % (AUTO) 0 % (0-1); EOSINOPHILS # (AUTO) 0.29 x10^3/uL (0-0.4); EOSINOPHILS % (AUTO) 4 % (1-7); LYMPHOCYTES # (AUTO) 1.68 x10^3/uL (1-3.4); LYMPHOCYTES % (AUTO) 25 % (22-44); MD NO; MEAN CORPUSCULAR HEMOGLOBIN 35.1 pg (27.0-34.8); MEAN CORPUSCULAR HGB CONC 34.8 g/dL (32.4-35.8); MEAN PLATELET VOLUME 7.4 fL (7.4-10.4); MONOCYTES # (AUTO) 0.66 x10^3/uL (0.2-0.8); MONOCYTES % (AUTO) 10 % (2-9); NEUTROPHILS # (AUTO) 4.21 x10^3/uL (1.8-6.8); NEUTROPHILS % (AUTO) 61 % (42-75); PLATELET COUNT 150 x10^3/uL (130-400); RED BLOOD COUNT 3.43 x10^6/uL (3.82-5.3); RED CELL DISTRIBUTION WIDTH 12.6 % (9.6-15.2)
[2018-05-25 05:25] LABS: ANION GAP 8 mmol/L (5-15); CALCIUM 7.9 mg/dL (8.5-10.1); CHLORIDE 103 mmol/L (98-107); CREATININE 0.32 mg/dL (0.55-1.02)
[2018-05-25] MEDS: ASPIRIN 81 MG TABLET EC PO SCH (05:35)
[2018-05-25 07:54] VITALS: BP 144/75
[2018-05-25] MEDS: LACTULOSE 20 GM/30 ML UDC PO SCH (08:56)
[2018-05-25] MEDS: TEMPLATE NON-FORMULARY MED. (Fluticasone/Salmeterol** (Advair 250-50 Diskus**) 1 PUFF) INH SCH ×2 (08:56→20:41)
[2018-05-25] MEDS: FLUTICASONE NASAL SPRAY 16GM NAS SCH (08:56)
[2018-05-25] MEDS: CHOLECALCIFEROL 1,000 UNIT TABLET PO SCH (08:57)
[2018-05-25] MEDS: PROPRANOLOl 80 MG CAP.SA.24H PO SCH (08:57)
[2018-05-25] MEDS: SERTRALINE 100MG TABLET PO SCH (08:57)
[2018-05-25] MEDS: CARBAMAZEPINE 200 MG TABLET PO SCH ×2 (08:57→20:39)
[2018-05-25] MEDS: NYSTATIN TOPICAL POWDER 15GM TP SCH ×2 (08:58→20:40)
[2018-05-25 13:17] VITALS: BP 137/67
[2018-05-25 20:33] VITALS: BP 154/88
[2018-05-25] MEDS: LOVASTATIN 20 MG TABLET PO SCH (20:39)
[2018-05-25] MEDS: ENOXAPARIN 40 MG/0.4 ML SQ SCH (20:43)
[2018-05-25] MEDS: ACETAMINOPHEN 325 MG TABLET PO PRN (22:43)
[2018-05-26 02:38] VITALS: BP 152/85
[2018-05-26] MEDS: ASPIRIN 81 MG TABLET EC PO SCH (06:22)
[2018-05-26 07:33] VITALS: BP 132/78
[2018-05-26] MEDS: FLUTICASONE NASAL SPRAY 16GM NAS SCH (08:23)
[2018-05-26] MEDS: PROPRANOLOl 80 MG CAP.SA.24H PO SCH (08:24)
[2018-05-26] MEDS: OXYcodone IR 5MG TABLET PO PRN (08:24)
[2018-05-26] MEDS: CARBAMAZEPINE 200 MG TABLET PO SCH (08:24)
[2018-05-26] MEDS: CHOLECALCIFEROL 1,000 UNIT TABLET PO SCH (08:24)
[2018-05-26] MEDS: NYSTATIN TOPICAL POWDER 15GM TP SCH ×2 (08:25→09:00)
[2018-05-26] MEDS: TEMPLATE NON-FORMULARY MED. (Fluticasone/Salmeterol** (Advair 250-50 Diskus**) 1 PUFF) INH SCH (08:25)
[2018-05-26] MEDS: SERTRALINE 100MG TABLET PO SCH (08:25)
[2018-05-26] MEDS ORDERED: LACTULOSE 20 GM/30 ML UDC PO SCH (09:00)
[2018-05-26] MEDS ORDERED: LACT20SO13 PO (11:38)
[2018-05-26] MEDS ORDERED: FLUT1DIS3 INH (11:38)
[2018-05-26] MEDS ORDERED: SERT100T5 PO (11:38)
[2018-05-26] MEDS ORDERED: PROP80CA3 PO (11:38)
[2018-05-26] MEDS ORDERED: CARB200T4 PO (11:38)
[2018-05-26] MEDS ORDERED: FLUT16SP NAS (11:38)
[2018-05-26] MEDS ORDERED: ACET325T14 PO (11:38)
[2018-05-26] MEDS ORDERED: NYST60PO TP (11:38)
[2018-05-26] MEDS ORDERED: CHOL10003 PO (11:38)
[2018-05-26] MEDS ORDERED: LOVA20TA2 PO (11:38)
== END 2018-05-26 14:54 | disposition home or self-care (01) | DRG 441 ==
LOC: ED 14:45 → EDIP 14:46 → ED 15:27 → 4EST 16:11
PROVIDERS: ADMIT Internal Medicine; ATTEND Internal Medicine
PROC: 0T9B70Z Drainage of Bladder with Drainage Device, Via Natural or Artificial Opening (ICD-10-PCS; principal; 2018-05-22)
DX: K72.00 Acute and subacute hepatic failure without coma (principal); E43 Unspecified severe protein-calorie malnutrition; E72.20 Disorder of urea cycle metabolism, unspecified; J96.11 Chronic respiratory failure with hypoxia; Z68.41 Body mass index [BMI] 40.0-44.9, adult; I69.351 Hemiplegia and hemiparesis following cerebral infarction affecting right dominant side; Z79.84 Long term (current) use of oral hypoglycemic drugs; Z87.891 Personal history of nicotine dependence; E11.9 Type 2 diabetes mellitus without complications; E66.01 Morbid (severe) obesity due to excess calories; F32.9 Major depressive disorder, single episode, unspecified; G40.909 Epilepsy, unspecified, not intractable, without status epilepticus; G47.33 Obstructive sleep apnea (adult) (pediatric); I10 Essential (primary) hypertension; J44.9 Chronic obstructive pulmonary disease, unspecified; E78.5 Hyperlipidemia, unspecified; G89.29 Other chronic pain; Y93.01 Activity, walking, marching and hiking; S92.322A Displaced fracture of second metatarsal bone, left foot, initial encounter for closed fracture; S92.332A Displaced fracture of third metatarsal bone, left foot, initial encounter for closed fracture; S92.342A Displaced fracture of fourth metatarsal bone, left foot, initial encounter for closed fracture; S92.352A Displaced fracture of fifth metatarsal bone, left foot, initial encounter for closed fracture; G43.909 Migraine, unspecified, not intractable, without status migrainosus; M19.90 Unspecified osteoarthritis, unspecified site; Z90.49 Acquired absence of other specified parts of digestive tract; Z90.89 Acquired absence of other organs; Z88.2 Allergy status to sulfonamides; Z88.1 Allergy status to other antibiotic agents; Z88.8 Allergy status to other drugs, medicaments and biological substances; Z99.81 Dependence on supplemental oxygen; Y92.098 Other place in other non-institutional residence as the place of occurrence of the external cause; Y99.8 Other external cause status; X50.1XXA Overexertion from prolonged static or awkward postures, initial encounter; K74.60 Unspecified cirrhosis of liver
CPT/HCPCS: 36415; 71045; 80048; 80053; 80156; 80307; 80329; 81001; 82140; 83605; 83735; 84100; 84484; 85025; 85610; 85730; 87086; 93005; 99285; G0378; J1650; G0480; J3480

== ENCOUNTER 2018-07-04 06:04 | Day surgery (SDC) | payer BC, MEDICARE ==
[~2018-07-04] VITALS: Ht 154.9 cm; Wt 106.0 kg
[~2018-07-04 06:04] MED LIST changes: +ACET325T14 PO; +BENEFIBER PO; +DESOXIMETASONE TP; +FLUT16SP NAS; +LACT20SO13 PO; +MIDRIN; +MULTIVITAMIN; +NYST60PO TP; +PROP80CA3 PO; +SERT100T32 PO; -SERT100T5 PO; +SUPER B COMPLEX PO; +[UNRECOGNIZED DRUG - OTHER]
[2018-07-04] MEDS ORDERED: SODIUM CHLORIDE 0.9% 1,000 ML IV SCH (06:24)
[2018-07-04 06:44] VITALS: BP 121/75
[2018-07-04] MEDS ORDERED: LIDOCAINE-MPF 1%, 5ML ONE (07:54)
[2018-07-04] MEDS ORDERED: FENTANYL PF 100 MCG/2ML ONE ×2 (07:56→07:57)
[2018-07-04] MEDS ORDERED: FLUMAZENIL 0.1 MG/1 ML, 5ML ONE (07:57)
[2018-07-04] MEDS ORDERED: MIDAZOLAM 1 MG/ML, 5ML ONE ×2 (07:57)
[2018-07-04] MEDS ORDERED: NALOXONE 1 MG/ML, 2ML ONE (07:57)
== END 2018-07-04 10:40 | disposition home or self-care (01) ==
LOC: RAD 06:04 → OUT 10:40
PROVIDERS: ATTEND Internal Medicine Gastroenterology
DX: K74.0 Hepatic fibrosis (principal); J44.9 Chronic obstructive pulmonary disease, unspecified; I10 Essential (primary) hypertension; Z99.81 Dependence on supplemental oxygen; Z88.1 Allergy status to other antibiotic agents; Z88.0 Allergy status to penicillin; Z88.8 Allergy status to other drugs, medicaments and biological substances; Z87.891 Personal history of nicotine dependence
CPT/HCPCS: 47000; 76942; 88307; 88313; 99156; 99157; J2250; J3010; J2310

== ENCOUNTER 2019-05-17 02:46 | Inpatient (IN) | payer MEDICARE, BC ==
[~2019-05-17] VITALS: Ht 157.5 cm; Wt 111.6 kg
[~2019-05-17 02:46] MED LIST changes: -FLUT16SP NAS; -FLUT16SP NS; +FLUT16SP24 NAS; +FLUT16SP24 NS
[2019-05-17] MEDS ORDERED: SODIUM CHLORIDE FLUSH 10ML SYR IVF ONE (03:30)
--- NOTE | 2019-05-17 03:51 | NUR ---
PT DECLINING TO ALLOW THIS RN TO PERFORM STRAIGHT CATH PT WANTS A FEMALE NURSE. ATTEMPTING TO FIND FEMALE NURSE AT THIS TIME.
[2019-05-17] MEDS ORDERED: ALBUTEROL/IPRATROPIUM 2.5MG/0.5MG, 3 ML NPPB ONE (04:00)
[2019-05-17] MEDS ORDERED: SODIUM CHLORIDE 0.9% 1,000ML IVBOLUS ONE (04:00)
[2019-05-17] MEDS ORDERED: ALBUTEROL/IPRATROPIUM 2.5MG/0.5MG, 3 ML ONE ×2 (04:12→11:10)
--- NOTE | 2019-05-17 04:37 | NUR ---
PT REFUSING BLOOD DRAW BY LAB. ALSO REFUSING. THIS RN TO BEDSIDE DISCUSSING IMPORTANCE OF ALLOWING BLOOD DRAW. PT AND SPOUSE ULTIMATELY AGREED TO LAB DRAW.
--- NOTE | 2019-05-17 04:55 | NUR ---
LAB ATTEMPTED ONCE AND THEN PT AND SPOUSE REFUSED FURTHER ATTEMPTS. THIS RN STARTED US IV AND ACQUIRED BLOOD.
[2019-05-17 05:04] LABS: BASOPHILS # (AUTO) 0.02 x10^3/uL (0-0.1); BASOPHILS % (AUTO) 0 % (0-1); EOSINOPHILS # (AUTO) 0.13 x10^3/uL (0-0.4); EOSINOPHILS % (AUTO) 2 % (1-7); LYMPHOCYTES # (AUTO) 1.22 x10^3/uL (1-3.4); LYMPHOCYTES % (AUTO) 16 % (22-44); MD NO; MEAN CORPUSCULAR HEMOGLOBIN 34.4 pg (27.0-34.8); MEAN CORPUSCULAR HGB CONC 33.3 g/dL (32.4-35.8); MEAN CORPUSCULAR VOLUME 103.3 fL (80-100); MEAN PLATELET VOLUME 7.6 fL (7.4-10.4); MONOCYTES # (AUTO) 0.75 x10^3/uL (0.2-0.8); MONOCYTES % (AUTO) 10 % (2-9); NEUTROPHILS # (AUTO) 5.33 x10^3/uL (1.8-6.8); NEUTROPHILS % (AUTO) 72 % (42-75); PLATELET COUNT 141 x10^3/uL (130-400); RED BLOOD COUNT 3.76 x10^6/uL (3.82-5.3); RED CELL DISTRIBUTION WIDTH 13.8 % (9.6-15.2)
--- NOTE | 2019-05-17 05:08 | NUR ---
FEMALE RN AT BEDSIDE FOR STRAIGHT CATH
[2019-05-17] MEDS ORDERED: CEFTRIAXONE PMX 1GM/50ML 50 ML ONE (05:10)
[2019-05-17 05:20] LABS: ALANINE AMINOTRANSFERASE 30 U/L (12-78); ALBUMIN 2.9 g/dL (3.4-5.0); ANION GAP 6 mmol/L (5-15); CALCIUM 8.4 mg/dL (8.5-10.1); CHLORIDE 99 mmol/L (98-107); CREATININE 0.38 mg/dL (0.55-1.02)
[2019-05-17 05:22] LABS: ALKALINE PHOSPHATASE 237 U/L (45-117); BILIRUBIN,TOTAL 0.8 mg/dL (0.2-1.0); TOTAL PROTEIN 7.4 g/dL (6.4-8.2)
--- NOTE | 2019-05-17 05:29 | NUR ---
PT REFUSING TO HOLD STILL FOR BP. SAME WITH ATTEMPT AT MANUAL.
[2019-05-17] MEDS ORDERED: CEFTRIAXONE PMX 1GM/50ML 50 ML IV ONE (05:30)
[2019-05-17 05:39] LABS: MICROSCOPIC NOT IND
[2019-05-17 05:43] LABS: CULTURE INDICATED? NO
[2019-05-17 05:48] LABS: AMPHETAMINE SCREEN, URINE Negative (Negative); BARBITURATE SCREEN, URINE Positive (Negative); BENZODIAZEPINE SCREEN, URINE Negative (Negative); CANNABINOID SCREEN, URINE Negative (Negative); COCAINE SCREEN, URINE Negative (Negative); METHADONE SCREEN, URINE Negative (Negative); OPIATE SCREEN, URINE Positive (Negative)
[2019-05-17] MEDS ORDERED: MAGNESIUM SULFATE PMX 2GM/50ML 50 ML IV ONE ×2 (06:30→08:00)
[2019-05-17] MEDS ORDERED: MAGNESIUM SULFATE PMX 2GM/50ML 50 ML ONE (06:31)
--- NOTE | 2019-05-17 06:44 | NUR ---
MAG STARTED. POC DISCUSSED. PT AND SPOUSE DENY FURTHER NEEDS AT THIS TIME.
--- NOTE | 2019-05-17 06:55 | NUR ---
BEDSIDE REPORT FROM ANYA RN, PT RESTING IN [facility], AT BEDSIDE. AWAITNIG BED ASSIGNMENT
--- NOTE | 2019-05-17 07:46 | NUR ---
ATTEMPTED TO CALL REPORT, NO ANSWER X1
--- NOTE | 2019-05-17 07:51 | NUR ---
REPORT TO BEATRICE ORONA
[2019-05-17] MEDS: CARBAMAZEPINE 200 MG TABLET PO SCH ×2 (09:00→20:11)
[2019-05-17] MEDS: SERTRALINE 100MG TABLET PO SCH (09:00)
[2019-05-17] MEDS ORDERED: DOCUSATE 100 MG CAPSULE PO PRN (09:00)
[2019-05-17] MEDS ORDERED: POLYETHYLENE GLYCOL 17 GM PACKET PO PRN (09:00)
[2019-05-17] MEDS: FLUTICASONE NASAL SPRAY 16GM NAS SCH (09:00)
[2019-05-17] MEDS: NYSTATIN TOPICAL POWDER 15GM TP SCH ×2 (09:00→20:11)
[2019-05-17] MEDS ORDERED: BISACODYL 10 MG SUPP PR PRN (09:00)
[2019-05-17] MEDS: SODIUM CHLORIDE 0.9% 1,000 ML IV SCH (09:50)
[2019-05-17] MEDS: ENOXAPARIN 40 MG/0.4 ML SQ SCH (09:50)
[2019-05-17] MEDS: CHOLECALCIFEROL 1,000 UNIT TABLET PO SCH (10:16)
[2019-05-17] MEDS: ASPIRIN 325 MG TABLET EC PO SCH (10:16)
[2019-05-17] MEDS: LACTULOSE 20 GM/30 ML UDC PO SCH ×2 (10:45→20:11)
[2019-05-17] MEDS: ALBUTEROL/IPRATROPIUM 2.5MG/0.5MG, 3 ML NPPB SCH ×2 (11:10→20:00)
[2019-05-17] MEDS ORDERED: OMEP20CA14 PO (12:29)
[2019-05-17] MEDS ORDERED: TRAZ-96 PO (12:30)
[2019-05-17] MEDS ORDERED: AMIT10TA PO (12:30)
[2019-05-17] MEDS ORDERED: CYCL-259 PO (12:31)
[2019-05-17 14:58] LABS: TROPONIN I < 0.015 ng/mL (0.000-0.045)
[2019-05-17 15:07] VITALS: BP 138/77
[2019-05-17] MEDS ORDERED: CEFTRIAXONE PMX 1GM/50ML 50 ML IV SCH (17:00)
[2019-05-17 19:03] VITALS: BP 143/79
[2019-05-17] MEDS: LOVASTATIN 20 MG TABLET PO SCH (20:11)
[2019-05-17] MEDS: ACETAMINOPHEN 325 MG TABLET PO PRN (20:11)
[2019-05-17 20:57] LABS: TROPONIN I < 0.015 ng/mL (0.000-0.045)
[2019-05-18] MEDS: SODIUM CHLORIDE 0.9% 1,000 ML IV SCH (00:26)
[2019-05-18] MEDS: ACETAMINOPHEN 325 MG TABLET PO PRN ×2 (00:30→19:30)
[2019-05-18 01:04] VITALS: BP 120/61
[2019-05-18 07:00] VITALS: BP 110/66
[2019-05-18] MEDS: ALBUTEROL/IPRATROPIUM 2.5MG/0.5MG, 3 ML NPPB SCH ×3 (07:00→20:53)
[2019-05-18 07:14] LABS: MEAN CORPUSCULAR HEMOGLOBIN 34.4 pg (27.0-34.8); MEAN CORPUSCULAR HGB CONC 33.8 g/dL (32.4-35.8); MEAN CORPUSCULAR VOLUME 101.7 fL (80-100); MEAN PLATELET VOLUME 7.2 fL (7.4-10.4); PLATELET COUNT 94 x10^3/uL (130-400); RED BLOOD COUNT 3.21 x10^6/uL (3.82-5.3); RED CELL DISTRIBUTION WIDTH 13.3 % (9.6-15.2)
[2019-05-18 07:26] LABS: ALBUMIN 2.5 g/dL (3.4-5.0); ANION GAP 4 mmol/L (5-15); CALCIUM 7.4 mg/dL (8.5-10.1); CHLORIDE 100 mmol/L (98-107)
[2019-05-18 07:38] LABS: ALANINE AMINOTRANSFERASE 25 U/L (12-78); ALKALINE PHOSPHATASE 193 U/L (45-117); CREATININE 0.24 mg/dL (0.55-1.02); TOTAL PROTEIN 6.1 g/dL (6.4-8.2)
[2019-05-18 08:03] LABS: BASOPHILS % (AUTO) 0 % (0-1); EOSINOPHILS # (AUTO) 0.04 x10^3/uL (0-0.4); EOSINOPHILS % (AUTO) 1 % (1-7); LYMPHOCYTES # (AUTO) 0.89 x10^3/uL (1-3.4); LYMPHOCYTES % (AUTO) 17 % (22-44); MD SCAN; MONOCYTES # (AUTO) 0.56 x10^3/uL (0.2-0.8); MONOCYTES % (AUTO) 11 % (2-9); NEUTROPHILS # (AUTO) 3.77 x10^3/uL (1.8-6.8); NEUTROPHILS % (AUTO) 72 % (42-75)
[2019-05-18] MEDS: CARBAMAZEPINE 200 MG TABLET PO SCH ×2 (10:19→20:40)
[2019-05-18] MEDS: SERTRALINE 100MG TABLET PO SCH (10:19)
[2019-05-18] MEDS: ASPIRIN 325 MG TABLET EC PO SCH (10:21)
[2019-05-18] MEDS: CHOLECALCIFEROL 1,000 UNIT TABLET PO SCH (10:21)
[2019-05-18] MEDS: ENOXAPARIN 40 MG/0.4 ML SQ SCH (10:22)
[2019-05-18] MEDS: LACTULOSE 20 GM/30 ML UDC PO SCH ×3 (10:22→20:41)
[2019-05-18] MEDS: FLUTICASONE NASAL SPRAY 16GM NAS SCH (10:22)
[2019-05-18] MEDS: NYSTATIN TOPICAL POWDER 15GM TP SCH ×2 (10:22→20:40)
[2019-05-18 14:00] VITALS: BP 136/72
[2019-05-18] MEDS: POTASSIUM CHLORIDE 20 MEQ TAB.ER.PRT PO SCH (17:07)
[2019-05-18 19:04] VITALS: BP 147/73
[2019-05-18] MEDS: TRAZODONE 50MG TABLET PO SCH (20:40)
[2019-05-18] MEDS: LOVASTATIN 20 MG TABLET PO SCH (20:40)
[2019-05-19 02:52] VITALS: BP 144/89
[2019-05-19] MEDS: ALBUTEROL/IPRATROPIUM 2.5MG/0.5MG, 3 ML NPPB SCH ×4 (02:58→20:56)
[2019-05-19 05:48] LABS: BASOPHILS # (AUTO) 0.02 x10^3/uL (0-0.1); BASOPHILS % (AUTO) 0 % (0-1); EOSINOPHILS # (AUTO) 0.26 x10^3/uL (0-0.4); EOSINOPHILS % (AUTO) 5 % (1-7); LYMPHOCYTES # (AUTO) 1.27 x10^3/uL (1-3.4); LYMPHOCYTES % (AUTO) 24 % (22-44); MD NO; MEAN CORPUSCULAR HEMOGLOBIN 34.5 pg (27.0-34.8); MEAN CORPUSCULAR HGB CONC 33.9 g/dL (32.4-35.8); MEAN CORPUSCULAR VOLUME 101.8 fL (80-100); MEAN PLATELET VOLUME 7.4 fL (7.4-10.4); MONOCYTES # (AUTO) 0.57 x10^3/uL (0.2-0.8); MONOCYTES % (AUTO) 11 % (2-9); NEUTROPHILS # (AUTO) 3.12 x10^3/uL (1.8-6.8); NEUTROPHILS % (AUTO) 60 % (42-75); PLATELET COUNT 100 x10^3/uL (130-400); RED BLOOD COUNT 3.38 x10^6/uL (3.82-5.3); RED CELL DISTRIBUTION WIDTH 13.2 % (9.6-15.2)
[2019-05-19 05:53] LABS: ANION GAP 3 mmol/L (5-15); CALCIUM 8.2 mg/dL (8.5-10.1); CHLORIDE 101 mmol/L (98-107)
[2019-05-19] MEDS: ASPIRIN 325 MG TABLET EC PO SCH (06:11)
[2019-05-19 07:56] VITALS: BP 165/87
[2019-05-19] MEDS: SERTRALINE 100MG TABLET PO SCH (10:07)
[2019-05-19] MEDS: CHOLECALCIFEROL 1,000 UNIT TABLET PO SCH (10:07)
[2019-05-19] MEDS: POTASSIUM CHLORIDE 20 MEQ TAB.ER.PRT PO SCH ×2 (10:07→17:14)
[2019-05-19] MEDS: CARBAMAZEPINE 200 MG TABLET PO SCH ×2 (10:07→20:18)
[2019-05-19] MEDS: OMEPRAZOLE 20 MG CAPSULE.DR PO SCH (10:07)
[2019-05-19] MEDS: PROPRANOLOl 80 MG CAP.SA.24H PO SCH (10:08)
[2019-05-19] MEDS: FLUTICASONE NASAL SPRAY 16GM NAS SCH (10:09)
[2019-05-19] MEDS: NYSTATIN TOPICAL POWDER 15GM TP SCH ×2 (10:10→21:00)
[2019-05-19] MEDS: ENOXAPARIN 40 MG/0.4 ML SQ SCH (10:11)
[2019-05-19] MEDS: LACTULOSE 20 GM/30 ML UDC PO SCH ×2 (10:11→20:18)
[2019-05-19] MEDS: MAGNESIUM OXIDE 400 MG TABLET PO SCH ×2 (12:37→20:17)
[2019-05-19 13:03] VITALS: BP 144/79
[2019-05-19] MEDS: ACETAMINOPHEN 325 MG TABLET PO PRN (15:34)
[2019-05-19 20:04] VITALS: BP 132/78
[2019-05-19] MEDS: TRAZODONE 50MG TABLET PO SCH (20:17)
[2019-05-19] MEDS: LOVASTATIN 20 MG TABLET PO SCH (20:17)
[2019-05-20 02:15] VITALS: BP 127/71
[2019-05-20] MEDS: ALBUTEROL/IPRATROPIUM 2.5MG/0.5MG, 3 ML NPPB SCH ×3 (03:00→14:29)
[2019-05-20] MEDS: ACETAMINOPHEN 325 MG TABLET PO PRN (05:40)
[2019-05-20] MEDS: ASPIRIN 325 MG TABLET EC PO SCH (05:40)
[2019-05-20 06:11] LABS: CHLORIDE 105 mmol/L (98-107)
[2019-05-20 06:26] LABS: ALANINE AMINOTRANSFERASE 27 U/L (12-78); ALBUMIN 2.6 g/dL (3.4-5.0); ALKALINE PHOSPHATASE 189 U/L (45-117); ANION GAP 5 mmol/L (5-15); BILIRUBIN,TOTAL 0.8 mg/dL (0.2-1.0); CALCIUM 8.2 mg/dL (8.5-10.1); CREATININE 0.34 mg/dL (0.55-1.02); TOTAL PROTEIN 6.7 g/dL (6.4-8.2)
[2019-05-20 06:36] LABS: BASOPHILS # (AUTO) 0.02 x10^3/uL (0-0.1); BASOPHILS % (AUTO) 0 % (0-1); EOSINOPHILS # (AUTO) 0.29 x10^3/uL (0-0.4); EOSINOPHILS % (AUTO) 6 % (1-7); LYMPHOCYTES # (AUTO) 1.16 x10^3/uL (1-3.4); LYMPHOCYTES % (AUTO) 23 % (22-44); MD NO; MEAN CORPUSCULAR HGB CONC 33.2 g/dL (32.4-35.8); MEAN CORPUSCULAR VOLUME 102.6 fL (80-100); MEAN PLATELET VOLUME 7.5 fL (7.4-10.4); MONOCYTES # (AUTO) 0.58 x10^3/uL (0.2-0.8); MONOCYTES % (AUTO) 12 % (2-9); NEUTROPHILS # (AUTO) 2.92 x10^3/uL (1.8-6.8); NEUTROPHILS % (AUTO) 59 % (42-75); PLATELET COUNT 115 x10^3/uL (130-400); RED BLOOD COUNT 3.55 x10^6/uL (3.82-5.3); RED CELL DISTRIBUTION WIDTH 13.6 % (9.6-15.2)
[2019-05-20 07:49] VITALS: BP 164/93
[2019-05-20] MEDS: FLUTICASONE NASAL SPRAY 16GM NAS SCH (09:54)
[2019-05-20] MEDS: POTASSIUM CHLORIDE 20 MEQ TAB.ER.PRT PO SCH (09:54)
[2019-05-20] MEDS: CARBAMAZEPINE 200 MG TABLET PO SCH (09:55)
[2019-05-20] MEDS: PROPRANOLOl 80 MG CAP.SA.24H PO SCH (09:55)
[2019-05-20] MEDS: SERTRALINE 100MG TABLET PO SCH (09:55)
[2019-05-20] MEDS: ENOXAPARIN 40 MG/0.4 ML SQ SCH (09:55)
[2019-05-20] MEDS: LACTULOSE 20 GM/30 ML UDC PO SCH (09:55)
[2019-05-20] MEDS: OMEPRAZOLE 20 MG CAPSULE.DR PO SCH (09:55)
[2019-05-20] MEDS: NYSTATIN TOPICAL POWDER 15GM TP SCH (09:55)
[2019-05-20] MEDS: MAGNESIUM OXIDE 400 MG TABLET PO SCH (09:55)
[2019-05-20] MEDS: CHOLECALCIFEROL 1,000 UNIT TABLET PO SCH (09:55)
[2019-05-20] MEDS ORDERED: MAGN400T50 PO (10:47)
[2019-05-20] MEDS ORDERED: ASPI-650 PO (10:47)
[2019-05-20 13:10] VITALS: BP 141/88
== END 2019-05-20 17:10 | DRG 563 ==
LOC: ED 03:12 → EDIP 06:43 → 4EST 08:14
PROVIDERS: ADMIT Internal Medicine; ATTEND Family Medicine
PROC: 0T9B70Z Drainage of Bladder with Drainage Device, Via Natural or Artificial Opening (ICD-10-PCS; principal; 2019-05-17)
DX: S82.842A Displaced bimalleolar fracture of left lower leg, initial encounter for closed fracture (principal); G93.40 Encephalopathy, unspecified; J96.11 Chronic respiratory failure with hypoxia; E66.2 Morbid (severe) obesity with alveolar hypoventilation; E87.1 Hypo-osmolality and hyponatremia; I69.351 Hemiplegia and hemiparesis following cerebral infarction affecting right dominant side; J98.11 Atelectasis; Z68.42 Body mass index [BMI] 45.0-49.9, adult; D75.89 Other specified diseases of blood and blood-forming organs; E11.9 Type 2 diabetes mellitus without complications; E78.5 Hyperlipidemia, unspecified; E83.42 Hypomagnesemia; F32.9 Major depressive disorder, single episode, unspecified; G40.909 Epilepsy, unspecified, not intractable, without status epilepticus; G43.909 Migraine, unspecified, not intractable, without status migrainosus; G89.4 Chronic pain syndrome; I10 Essential (primary) hypertension; J32.9 Chronic sinusitis, unspecified; J44.9 Chronic obstructive pulmonary disease, unspecified; K74.60 Unspecified cirrhosis of liver; R32 Unspecified urinary incontinence; M19.90 Unspecified osteoarthritis, unspecified site; W18.30XA Fall on same level, unspecified, initial encounter; Y93.89 Activity, other specified; Y92.89 Other specified places as the place of occurrence of the external cause; Y99.8 Other external cause status; Z90.49 Acquired absence of other specified parts of digestive tract
CPT/HCPCS: 36415; 70450; 70551; 71045; 80048; 80053; 80307; 81003; 82140; 82607; 83735; 84100; 84145; 84443; 84484; 85025; 93005; 93306; 94640; 96365; G0378; J0696; J1650; J7620; J3475; J7030

== ENCOUNTER 2020-03-04 18:43 | Inpatient (IN) | payer BC, MEDICARE ==
[~2020-03-04] VITALS: Ht 152.4 cm; Wt 103.2 kg
[~2020-03-04 18:43] MED LIST changes: +AMIT10TA PO; +ASPI-650 PO; +MAGN400T50 PO; +NYST15CR TP; -NYST15CR33 TP; +OMEP20CA20 PO; -TRAZ-137 PO; +TRAZ-175 PO; +TRAZ-96 PO
[2020-03-04] MEDS ORDERED: SERT-238 PO (19:21)
[2020-03-04] MEDS ORDERED: CLIN150C14 PO (19:21)
[2020-03-04] MEDS ORDERED: CALC60CR2 TP (19:21)
[2020-03-04] MEDS ORDERED: LACT10SO PO (19:21)
[2020-03-04] MEDS ORDERED: UMEC1DIS INH (19:21)
[2020-03-04] MEDS ORDERED: MORP-29 PO (19:21)
[2020-03-04] MEDS ORDERED: SODIUM CHLORIDE 0.9% 1,000ML IVBOLUS ONE (20:00)
--- NOTE | 2020-03-04 20:16 | NUR ---
PT STATES "I HERE FOR THE SAME THING I WAS HERE FOR LAST YEAR". PT ORIENTED TO NAME, PLACE. STATED INCORRECT MONTH; DIDN'T KNOW THE YEAR OR DAY. PT'S SPOUSE IN ROOM. SPOUSE STATES I THINK HER AMMONIA LEVELS ARE OFF, CAN'T HANG ON TO ANYTHING WITH HER HANDS, EASILY DISTRACTED; STATES PT HAD LACTULOSE 30ML X 3 TODAY.
--- NOTE | 2020-03-04 20:30 | NUR ---
SPOUSE STATES PT USES HOME O2 AT 3LNC. O2 SAT 94% ON 2LNC; WILL TITRATE.
[2020-03-04 20:31] LABS: BASOPHILS # (AUTO) 0.01 x10^3/uL (0-0.1); BASOPHILS % (AUTO) 0 % (0-1); EOSINOPHILS % (AUTO) 5 % (1-7); LYMPHOCYTES # (AUTO) 1.02 x10^3/uL (1-3.4); LYMPHOCYTES % (AUTO) 17 % (22-44); MD NO; MEAN CORPUSCULAR HEMOGLOBIN 34.1 pg (27.0-34.8); MEAN CORPUSCULAR HGB CONC 32.9 g/dL (32.4-35.8); MEAN CORPUSCULAR VOLUME 103.5 fL (80-100); MEAN PLATELET VOLUME 6.7 fL (7.4-10.4); MONOCYTES # (AUTO) 0.64 x10^3/uL (0.2-0.8); MONOCYTES % (AUTO) 11 % (2-9); NEUTROPHILS # (AUTO) 4.03 x10^3/uL (1.8-6.8); NEUTROPHILS % (AUTO) 67 % (42-75); PLATELET COUNT 146 x10^3/uL (130-400); RED BLOOD COUNT 3.36 x10^6/uL (3.82-5.3); RED CELL DISTRIBUTION WIDTH 13.4 % (9.6-15.2)
[2020-03-04 20:38] LABS: ALBUMIN 2.6 g/dL (3.4-5.0); ANION GAP 4 mmol/L (5-15); CALCIUM 8.5 mg/dL (8.5-10.1); CHLORIDE 99 mmol/L (98-107)
[2020-03-04 20:41] LABS: ALANINE AMINOTRANSFERASE 29 U/L (12-78); ALKALINE PHOSPHATASE 168 U/L (45-117); BILIRUBIN,TOTAL 0.7 mg/dL (0.2-1.0); CREATININE 0.47 mg/dL (0.55-1.02); TOTAL PROTEIN 7.2 g/dL (6.4-8.2)
--- NOTE | 2020-03-04 20:56 | NUR ---
COMMODE CHAIR TO ROOM.
--- NOTE | 2020-03-04 21:09 | NUR ---
EKG AT FOR REPEAT EKG
--- NOTE | 2020-03-04 21:20 | NUR ---
UP TO COMMODE CHAIR W/ ASSIST
--- NOTE | 2020-03-04 21:54 | NUR ---
BM IN URINE COLLECTION HAT.
[2020-03-04] MEDS ORDERED: morphine SULFATE 10 MG/ML, 1ML IVPush PRN (22:00)
[2020-03-04] MEDS ORDERED: hydrALAzine 20 MG/ML, 1ML IVPush PRN (22:00)
[2020-03-04] MEDS ORDERED: DOCUSATE 100 MG CAPSULE PO PRN (22:00)
[2020-03-04] MEDS ORDERED: ONDANSETRON 2MG/ML, 2ML IVPush PRN (22:00)
--- NOTE | 2020-03-04 22:01 | NUR ---
DR CHANCE AT BS
--- NOTE | 2020-03-04 22:05 | NUR ---
PT REPORT TO YEYO MELARA. PT CARE TRANSFERRED
--- NOTE | 2020-03-04 22:25 | NUR ---
REPORT TO ADALID FOREMAN READY FOR TRANSPORT TO FLOOR AT THIS TIME
[2020-03-04 23:23] VITALS: BP 116/37
[2020-03-04 23:29] LABS: FREE T4 (FREE THYROXINE) 0.92 ng/dL (0.76-1.46)
[2020-03-04] MEDS: SODIUM CHLORIDE 0.9% 1,000 ML IV SCH (23:55)
[2020-03-05] MEDS: RIFAXIMIN 550 MG TABLET PO SCH ×3 (00:30→20:39)
[2020-03-05] MEDS: LACTULOSE 20 GM/30 ML UDC PO SCH ×4 (00:30→20:38)
[2020-03-05 02:02] VITALS: BP 136/64
[2020-03-05 04:34] LABS: MICROSCOPIC NOT IND
[2020-03-05] MEDS: ASPIRIN 325 MG TABLET EC PO SCH (05:30)
[2020-03-05 05:55] LABS: ANION GAP 6 mmol/L (5-15); CALCIUM 7.9 mg/dL (8.5-10.1); CHLORIDE 101 mmol/L (98-107); CREATININE 0.33 mg/dL (0.55-1.02)
[2020-03-05 05:59] LABS: BASOPHILS # (AUTO) 0.02 x10^3/uL (0-0.1); BASOPHILS % (AUTO) 0 % (0-1); EOSINOPHILS # (AUTO) 0.25 x10^3/uL (0-0.4); EOSINOPHILS % (AUTO) 6 % (1-7); LYMPHOCYTES # (AUTO) 0.91 x10^3/uL (1-3.4); LYMPHOCYTES % (AUTO) 22 % (22-44); MD NO; MEAN CORPUSCULAR HEMOGLOBIN 34.8 pg (27.0-34.8); MEAN CORPUSCULAR HGB CONC 33.5 g/dL (32.4-35.8); MEAN PLATELET VOLUME 6.7 fL (7.4-10.4); MONOCYTES % (AUTO) 12 % (2-9); NEUTROPHILS % (AUTO) 60 % (42-75); PLATELET COUNT 123 x10^3/uL (130-400); RED BLOOD COUNT 3.02 x10^6/uL (3.82-5.3); RED CELL DISTRIBUTION WIDTH 13.4 % (9.6-15.2)
[2020-03-05 07:49] VITALS: BP 129/81
[2020-03-05] MEDS: OMEPRAZOLE 20 MG CAPSULE.DR PO SCH (09:19)
[2020-03-05] MEDS: SERTRALINE 100MG TABLET PO SCH (09:19)
[2020-03-05] MEDS: PROPRANOLOl 80 MG CAP.SA.24H PO SCH (09:23)
[2020-03-05] MEDS: SODIUM CHLORIDE 0.9% 1,000 ML IV SCH ×2 (09:29→16:52)
[2020-03-05] MEDS: ENOXAPARIN 40 MG/0.4 ML SQ SCH (09:31)
[2020-03-05] MEDS: CARBAMAZEPINE 200 MG TABLET PO SCH ×2 (09:31→20:38)
[2020-03-05 14:05] VITALS: BP 124/64
[2020-03-05] MEDS: FLUTICASONE NASAL SPRAY 16GM NAS SCH (16:41)
[2020-03-05] MEDS ORDERED: (Umeclidinium Brm/Vilanterol Tr (Anoro Ellipta 62.5-25 Mcg Inh INH SCH (18:00)
[2020-03-05] MEDS: TIOTROPIUM BROMIDE 18 MCG/INH INH SCH (18:00)
[2020-03-05 20:00] VITALS: BP 117/53
[2020-03-05] MEDS: LOVASTATIN 20 MG TABLET PO SCH (20:39)
[2020-03-05] MEDS: AMITRIPTYLINE 10 MG TABLET PO SCH (20:39)
[2020-03-05] MEDS: SEREVENT PO SCH (20:47)
[2020-03-05 23:00] VITALS: BP 110/57
[2020-03-06] MEDS ORDERED: DIPHENHYDRAMINE 50 MG/ML, 1ML IVPush ONE
[2020-03-06] MEDS ORDERED: METOCLOPRAMIDE 5 MG/ML, 2ML IVPush ONE
[2020-03-06] MEDS: SODIUM CHLORIDE 0.9% 1,000 ML IV SCH ×2 (00:59→08:58)
[2020-03-06 01:01] VITALS: BP 98/51
[2020-03-06 05:38] LABS: BASOPHILS # (AUTO) 0.04 x10^3/uL (0-0.1); BASOPHILS % (AUTO) 1 % (0-1); EOSINOPHILS # (AUTO) 0.32 x10^3/uL (0-0.4); EOSINOPHILS % (AUTO) 6 % (1-7); LYMPHOCYTES # (AUTO) 1.18 x10^3/uL (1-3.4); LYMPHOCYTES % (AUTO) 23 % (22-44); MD NO; MEAN CORPUSCULAR HGB CONC 33.5 g/dL (32.4-35.8); MEAN CORPUSCULAR VOLUME 104.2 fL (80-100); MEAN PLATELET VOLUME 6.7 fL (7.4-10.4); MONOCYTES # (AUTO) 0.54 x10^3/uL (0.2-0.8); MONOCYTES % (AUTO) 11 % (2-9); NEUTROPHILS # (AUTO) 2.97 x10^3/uL (1.8-6.8); NEUTROPHILS % (AUTO) 59 % (42-75); PLATELET COUNT 119 x10^3/uL (130-400); RED BLOOD COUNT 2.92 x10^6/uL (3.82-5.3); RED CELL DISTRIBUTION WIDTH 13.3 % (9.6-15.2)
[2020-03-06 05:50] LABS: CHLORIDE 102 mmol/L (98-107)
[2020-03-06] MEDS: ASPIRIN 325 MG TABLET EC PO SCH (06:03)
[2020-03-06 06:05] LABS: ALANINE AMINOTRANSFERASE 25 U/L (12-78); ALBUMIN 2.4 g/dL (3.4-5.0); ALKALINE PHOSPHATASE 143 U/L (45-117); ANION GAP 6 mmol/L (5-15); BILIRUBIN,TOTAL 0.8 mg/dL (0.2-1.0); CALCIUM 7.8 mg/dL (8.5-10.1); CREATININE 0.23 mg/dL (0.55-1.02); TOTAL PROTEIN 6.3 g/dL (6.4-8.2)
[2020-03-06 07:30] VITALS: BP 108/77
[2020-03-06] MEDS ORDERED: POTASSIUM PHOSPHATE 44 MEQ in SODIUM CHLORIDE 0.9% 500 ML IV ONE (08:00)
[2020-03-06] MEDS: SEREVENT PO SCH ×2 (09:00→22:13)
[2020-03-06] MEDS: LACTULOSE 20 GM/30 ML UDC PO SCH ×3 (09:00→22:09)
[2020-03-06] MEDS: ENOXAPARIN 40 MG/0.4 ML SQ SCH (09:00)
[2020-03-06] MEDS: OMEPRAZOLE 20 MG CAPSULE.DR PO SCH (09:01)
[2020-03-06] MEDS: TIOTROPIUM BROMIDE 18 MCG/INH INH SCH (09:01)
[2020-03-06] MEDS: RIFAXIMIN 550 MG TABLET PO SCH ×2 (09:01→22:09)
[2020-03-06] MEDS: FLUTICASONE NASAL SPRAY 16GM NAS SCH (09:01)
[2020-03-06] MEDS: CARBAMAZEPINE 200 MG TABLET PO SCH ×2 (09:01→22:09)
[2020-03-06] MEDS: PROPRANOLOl 80 MG CAP.SA.24H PO SCH (09:01)
[2020-03-06] MEDS: SERTRALINE 100MG TABLET PO SCH (09:01)
[2020-03-06 14:05] VITALS: BP 103/56
[2020-03-06 20:23] VITALS: BP 131/81
[2020-03-06] MEDS: AMITRIPTYLINE 10 MG TABLET PO SCH (22:09)
[2020-03-06] MEDS: LOVASTATIN 20 MG TABLET PO SCH (22:09)
[2020-03-07 01:54] VITALS: BP 141/78
[2020-03-07 03:36] LABS: BASOPHILS # (AUTO) 0.02 x10^3/uL (0-0.1); BASOPHILS % (AUTO) 1 % (0-1); EOSINOPHILS # (AUTO) 0.33 x10^3/uL (0-0.4); EOSINOPHILS % (AUTO) 7 % (1-7); LYMPHOCYTES # (AUTO) 0.86 x10^3/uL (1-3.4); LYMPHOCYTES % (AUTO) 19 % (22-44); MD NO; MEAN CORPUSCULAR HEMOGLOBIN 34.5 pg (27.0-34.8); MEAN CORPUSCULAR HGB CONC 33.3 g/dL (32.4-35.8); MEAN CORPUSCULAR VOLUME 103.8 fL (80-100); MEAN PLATELET VOLUME 6.4 fL (7.4-10.4); MONOCYTES # (AUTO) 0.44 x10^3/uL (0.2-0.8); MONOCYTES % (AUTO) 10 % (2-9); NEUTROPHILS # (AUTO) 2.87 x10^3/uL (1.8-6.8); NEUTROPHILS % (AUTO) 63 % (42-75); PLATELET COUNT 118 x10^3/uL (130-400); RED BLOOD COUNT 3.06 x10^6/uL (3.82-5.3); RED CELL DISTRIBUTION WIDTH 13.3 % (9.6-15.2)
[2020-03-07 03:47] LABS: ANION GAP 6 mmol/L (5-15); CALCIUM 8.1 mg/dL (8.5-10.1); CHLORIDE 100 mmol/L (98-107)
[2020-03-07 03:48] LABS: CREATININE 0.26 mg/dL (0.55-1.02)
[2020-03-07] MEDS: ASPIRIN 325 MG TABLET EC PO SCH (05:34)
[2020-03-07] MEDS: ENOXAPARIN 40 MG/0.4 ML SQ SCH (08:13)
[2020-03-07] MEDS: LACTULOSE 20 GM/30 ML UDC PO SCH ×2 (08:13→16:00)
[2020-03-07] MEDS: SEREVENT PO SCH (08:14)
[2020-03-07] MEDS: FLUTICASONE NASAL SPRAY 16GM NAS SCH (08:14)
[2020-03-07] MEDS: OMEPRAZOLE 20 MG CAPSULE.DR PO SCH (08:14)
[2020-03-07] MEDS: RIFAXIMIN 550 MG TABLET PO SCH (08:14)
[2020-03-07] MEDS: CARBAMAZEPINE 200 MG TABLET PO SCH (08:14)
[2020-03-07] MEDS: SERTRALINE 100MG TABLET PO SCH (08:14)
[2020-03-07 08:20] VITALS: BP 123/61
[2020-03-07] MEDS: PROPRANOLOl 80 MG CAP.SA.24H PO SCH (08:26)
[2020-03-07] MEDS: TIOTROPIUM BROMIDE 18 MCG/INH INH SCH (08:26)
[2020-03-07] MEDS: SODIUM CHLORIDE 0.9% 1,000 ML IV SCH ×2 (08:26→15:22)
[2020-03-07] MEDS ORDERED: RIFA550T4 PO (11:42)
[2020-03-07] MEDS ORDERED: FLUT1DIS3 INH (11:42)
[2020-03-07] MEDS ORDERED: LACT20SO13 PO (11:42)
[2020-03-07 13:39] VITALS: BP 122/68
== END 2020-03-07 17:04 | disposition home or self-care (01) | DRG 441 ==
LOC: ED 19:51 → OBSVTOIN 21:58 → EDIP 21:58 → INTOOBSV 21:58 → 3N 23:05
PROVIDERS: ADMIT Student in an Organized Health Care Education/Training Program; ATTEND Internal Medicine
DX: K72.00 Acute and subacute hepatic failure without coma (principal); G93.41 Metabolic encephalopathy; J96.10 Chronic respiratory failure, unspecified whether with hypoxia or hypercapnia; E11.9 Type 2 diabetes mellitus without complications; E78.5 Hyperlipidemia, unspecified; E86.0 Dehydration; F32.9 Major depressive disorder, single episode, unspecified; G47.33 Obstructive sleep apnea (adult) (pediatric); I10 Essential (primary) hypertension; J32.2 Chronic ethmoidal sinusitis; J32.3 Chronic sphenoidal sinusitis; J44.9 Chronic obstructive pulmonary disease, unspecified; K74.60 Unspecified cirrhosis of liver; L40.9 Psoriasis, unspecified; Z86.73 Personal history of transient ischemic attack (TIA), and cerebral infarction without residual deficits; Z79.899 Other long term (current) drug therapy
CPT/HCPCS: 36415; 70450; 71045; 80048; 80053; 80307; 81003; 82140; 82607; 83735; 84100; 84439; 84443; 85025; 86592; 93005; G0378; J1650; J1200; J2765; J7030; J7040

== ENCOUNTER 2020-09-16 17:05 | Emergency (ER) | payer MEDICARE, BC ==
[~2020-09-16] VITALS: Ht 152.4 cm; Wt 91.0 kg
[~2020-09-16 17:05] MED LIST changes: -ASPI-650 PO; +ASPI325T20 PO; +CALC60CR2 TP; +CLIN150C15 PO; -CYCL-259 PO; +CYCL10TA2 PO; +LACT10SO2 PO; +MORP-29 PO; +RIFA550T4 PO; +SERT-238 PO
--- NOTE | 2020-09-16 17:20 | NUR ---
JAGJIT RN: PT IS NOT ABLE TO STAND FOR TRIAGE WEIGHT
--- NOTE | 2020-09-16 18:10 | NUR ---
JAGJIT RN: PT CALLED BACK TO ROOM PIT FROM [facility]
--- NOTE | 2020-09-16 18:33 | NUR ---
COMMUNICATIONS PROJECT LEAD: PT TO ROOM FROM LOBBY VIA W/C
--- NOTE | 2020-09-16 19:05 | NUR ---
Pt with hx of high ammonia levels, did not take her 4th dose. Pt with periods of confusion, pt also on o2 3l always. Placed on wall o2, cont pulse ox. No head trauma, no loc. GLF tripped on walker, left ankle foot with swelling, bruising. Ice therapy, elevation. Labs drawn and sent, PXR done. AIDET PROVIDED. Addendum: 09/16/20 at 1917 by DALIA Majority of bruising is over left great toe. Confirmed with provider that foot xray will be sufficient for toe evaluation. Pt with inc in depends, placed on chucks pad.
[2020-09-16 19:11] LABS: BASOPHILS % (AUTO) 1 % (0-1); EOSINOPHILS % (AUTO) 2 % (1-7); LYMPHOCYTES % (AUTO) 18 % (22-44); MEAN CORPUSCULAR HEMOGLOBIN 35.9 pg (27.0-34.8); MEAN CORPUSCULAR HGB CONC 34.4 g/dL (32.4-35.8); MEAN PLATELET VOLUME 7.5 fL (7.4-10.4); MONOCYTES % (AUTO) 11 % (2-9); NEUTROPHILS % (AUTO) 69 % (42-75); PLATELET COUNT 124 x10^3/uL (130-400); RED BLOOD COUNT 3.16 x10^6/uL (3.82-5.3); RED CELL DISTRIBUTION WIDTH 15.1 % (9.6-15.2)
[2020-09-16 19:13] LABS: MD NO
[2020-09-16 19:22] LABS: INTERNATIONAL NORMALIZED RATIO 1.27 (0.93-1.1); PROTHROMBIN TIME 13.5 Seconds (9.6-11.5)
[2020-09-16 19:24] LABS: ALBUMIN 2.9 g/dL (3.4-5.0); CHLORIDE 96 mmol/L (98-107)
[2020-09-16 19:28] LABS: ALANINE AMINOTRANSFERASE 32 U/L (12-78); ALKALINE PHOSPHATASE 245 U/L (45-117); CREATININE 0.42 mg/dL (0.55-1.02); TOTAL PROTEIN 7.6 g/dL (6.4-8.2)
[2020-09-16 19:36] LABS: ANION GAP 4 mmol/L (5-15)
--- NOTE | 2020-09-16 19:53 | NUR ---
Pt vitals stable, continues with some confusion. Provider aware, provider added on etoh level. Will continue to monitor.
--- NOTE | 2020-09-16 20:57 | NUR ---
Dr Fischer at bedside.
[2020-09-16 21:12] VITALS: BP 125/71
--- NOTE | 2020-09-16 21:12 | NUR ---
Boot back on, waiting for discharge papers.
== END 2020-09-16 21:29 | disposition home or self-care (01) ==
LOC: ED 20:59
DX: S92.315A Nondisplaced fracture of first metatarsal bone, left foot, initial encounter for closed fracture (principal); S92.325A Nondisplaced fracture of second metatarsal bone, left foot, initial encounter for closed fracture; J44.9 Chronic obstructive pulmonary disease, unspecified; I10 Essential (primary) hypertension; E11.9 Type 2 diabetes mellitus without complications; E78.5 Hyperlipidemia, unspecified; E66.01 Morbid (severe) obesity due to excess calories; Z68.39 Body mass index [BMI] 39.0-39.9, adult; Z90.89 Acquired absence of other organs; Z90.49 Acquired absence of other specified parts of digestive tract; X58.XXXA Exposure to other specified factors, initial encounter; Y93.89 Activity, other specified; Y92.89 Other specified places as the place of occurrence of the external cause; Y99.8 Other external cause status
CPT/HCPCS: 36415; 80053; 80320; 82140; 85025; 85610; 99284; G0480